=== PATIENT | female | born 1950 | race Caucasian/White ===

== ENCOUNTER 2016-10-21 12:42 | Emergency (ER) | payer MEDICARE, MEDICAID ==
[~2016-10-21] VITALS: Ht 177.8 cm; Wt 66.8 kg
[~2016-10-21 12:42] MED LIST: AMLO-511 PO; AMLO-512 PO; ASPI81 PO; ATOR40TA28 GT; CLOP75 PO; CLOP75TA PO; DSS100 PO; DULO30CA2 PO; GLIP10 PO; GLIP5 PO; IBUP-2070 PO; SIMV40 PO; VALS80TA2 PO; VENL-68 PO; VICOT PO; ZOLP10 PO
[2016-10-21] MEDS ORDERED: BUSP5TAB20 PO (12:53)
[2016-10-21] MEDS ORDERED: ALBU8.5H IH (12:53)
[2016-10-21] MEDS ORDERED: TRAZ-144 PO (12:53)
[2016-10-21] MEDS ORDERED: BACL10TA PO (12:53)
[2016-10-21 13:46] LABS: BASOPHILS # (AUTO) 0.03 K/uL (0.00-0.20); BASOPHILS % (AUTO) 0.5 % (0.0-2.0); EOSINOPHILS # (AUTO) 0.08 K/uL (0.00-0.70); EOSINOPHILS % (AUTO) 1.39 % (1.0-6.0); HEMATOCRIT 34.5 % (36-46); HEMOGLOBIN 11.5 g/dL (12.0-16.0); LYMPHOCYTES # (AUTO) 1.6 K/uL (1.0-4.8); LYMPHOCYTES % (AUTO) 27.5 % (22.0-44.0); MEAN CORPUSCULAR HEMOGLOBIN 29.1 pg (26.0-34.0); MEAN CORPUSCULAR HGB CONC 33.4 G/dL (31.0-37.0); MEAN CORPUSCULAR VOLUME 87 fL (80-100); MONOCYTES # (AUTO) 0.5 K/uL (0.1-1.0); MONOCYTES % (AUTO) 8.1 % (2.0-9.0); NEUTROPHILS # (AUTO) 3.6 K/uL (1.8-7.7); NEUTROPHILS % (AUTO) 62.6 % (40.0-70.0); PLATELET COUNT (AUTO) 198 K/uL (150-450); RED BLOOD CELL COUNT(AUTO) 3.96 MIL/uL (4.00-5.20); RED CELL DISTRIBUTION WIDTH 14.2 % (11.5-14.5); WHITE BLOOD COUNT (AUTO) 5.8 K/uL (4.5-11.0)
[2016-10-21 13:58] LABS: CALCIUM, TOTAL 8.9 mg/dL (8.8-10.5); CREATININE 1.44 mg/dL (0.60-1.30); POTASSIUM 4.1 mmol/L (3.5-5.1)
[2016-10-21 14:03] LABS: ALBUMIN 3.5 g/dL (3.4-5.0); BILIRUBIN,TOTAL 0.4 mg/dL (0.1-1.0); TOTAL PROTEIN, SERUM 6.9 g/dL (6.4-8.2)
[2016-10-21 14:41] VITALS: BP 143/90
== END 2016-10-21 15:02 | disposition home or self-care (01) ==
LOC: EMS 12:43
DX: I67.2 Cerebral atherosclerosis (principal); R47.1 Dysarthria and anarthria; J44.1 Chronic obstructive pulmonary disease with (acute) exacerbation; E11.9 Type 2 diabetes mellitus without complications; I10 Essential (primary) hypertension; F17.200 Nicotine dependence, unspecified, uncomplicated; Z86.73 Personal history of transient ischemic attack (TIA), and cerebral infarction without residual deficits; Z79.82 Long term (current) use of aspirin
CPT/HCPCS: 70450; 99285

== ENCOUNTER 2017-11-05 10:47 | Emergency (ER) | payer MEDICARE, MEDICAID ==
[~2017-11-05] VITALS: Ht 177.8 cm; Wt 59.1 kg
[~2017-11-05 10:47] MED LIST changes: +ALBU8.5H8 IH; -ATOR40TA28 GT; +BACL10TA PO; +BUSP5TAB20 PO; -CLOP75 PO; -CLOP75TA PO; -GLIP10 PO; -IBUP-2070 PO; +SIMV-261 PO; -SIMV40 PO; +TRAZ-144 PO; -VENL-68 PO; -VICOT PO; -ZOLP10 PO
[2017-11-05 11:02] LABS: GLUCOSE,POINT OF CARE 126 MG/DL (70-110)
[2017-11-05] MEDS ORDERED: IBUPROFEN 800 MG TABLET PO ONE (11:45)
[2017-11-05 13:41] VITALS: BP 140/95
== END 2017-11-05 13:46 | disposition home or self-care (01) ==
LOC: EMS 10:51
DX: S92.354A Nondisplaced fracture of fifth metatarsal bone, right foot, initial encounter for closed fracture (principal); E11.9 Type 2 diabetes mellitus without complications; I10 Essential (primary) hypertension; F17.200 Nicotine dependence, unspecified, uncomplicated; X50.9XXA Other and unspecified overexertion or strenuous movements or postures, initial encounter; Y93.89 Activity, other specified; Y92.89 Other specified places as the place of occurrence of the external cause; Y99.8 Other external cause status
CPT/HCPCS: 29515; 82962; 99284